=== PATIENT | female | born 1950 | race Caucasian/White ===

== ENCOUNTER 2019-08-31 11:44 | Emergency (ER) | payer OTHER ==
[~2019-08-31] VITALS: Ht 160 cm; Wt 70.3 kg
--- NOTE | ~2019-08-31 | EKG ---
[facility] [place] [address] ELECTROCARDIOGRAM REPORT Name: MELINDAESTELLA Edwards Room #: [facility]#: [id number] Admission: Attend Phys: Discharge: Date of : 54 Report #: [id number] THIS REPORT FOR: cc: Delvin Hargrove MD ~ THIS REPORT FOR: //name// [facility] ED Test Date: 2019-08-31 Test Time: 12:25:55 Pat Name: ESTELLA LAWRENCE Department: Room: Gender: F Charge Manager: SALONI : 1950 Requested By: Keisha Covington Order Number: [id number] MD: Measurements Intervals [place] Rate: 90 P: 12 VA: 133 QRS: -13 QRSD: 104 T: -1 QT: 397 QTc: 486 Interpretive Statements Sinus rhythm RSR' in V1 or V2, right VCD or RVH Borderline T abnormalities, inferior leads Borderline prolonged QT interval Baseline wander in lead(s) V1,V2,V6 Compared to ECG 11/14/2009 15:29:15 Right ventricular hypertrophy now present RSR' in V1 or V2 now present T-wave abnormality now present Left ventricular hypertrophy no longer present [email or web address] By: D: [id number] Epiphany Epiphany, /VISHAL
[~2019-08-31 11:44] MED LIST: ASACOL HD800 MG PO; COMPOUNDED HORMONES; LEVOTHROID; PROTONIX40 MG PO
[2019-08-31 12:10] LABS: URINE BILIRUBIN NEGATIVE (Negative); URINE BLOOD NEGATIVE (Negative); URINE CLARITY CLEAR; URINE COLOR YELLOW; URINE GLUCOSE-RANDOM* NEGATIVE (Negative); URINE KETONES 2+ (Negative); URINE LEUKOCYTES-REFLEX NEGATIVE (Negative); URINE NITRITE-REFLEX NEGATIVE (Negative); URINE PROTEIN (DIPSTICK) NEGATIVE (Negative); URINE UROBILINOGEN 0.2 E.U./dl (0.2-1.0)
[2019-08-31 12:29] LABS: ABSOLUTE NEUTROPHILS 12.8 thou/uL (1.4-8.2); BASOPHILS 0.4 % (0.0-2.0); HEMATOCRIT 40.7 % (37.0-47.0); HEMOGLOBIN 13.3 gm/dL (12.0-15.0); LYMPHOCYTES 7.9 % (24.0-44.0); MCH 29.9 pg (26.0-34.0); MCHC 32.6 g/dL (28.0-37.0); MCV 91.7 fL (80.0-100.0); MONOCYTES 2.8 % (1.0-8.0); PLATELET COUNT 312 thou/uL (150-400); POLYS 88.9 % (36.0-66.0); RBC 4.44 mil/uL (4.20-5.00); RDW 12.7 % (10.5-14.5); WBC 14.4 thou/uL (4.0-11.0)
[2019-08-31 12:31] LABS: SSA (PROTEIN CONFIRMATORY) TRACE (APPROX. 5) mg/dL (Negative)
[2019-08-31 12:35] LABS: ANION GAP 10 mmol/L (7-16); BUN 13 mg/dL (7-18); CALCIUM 8.9 mg/dL (8.5-10.1); CHLORIDE 104 mmol/L (98-107); CO2 26 mmol/L (21-32); CREATININE 0.9 mg/dL (0.6-1.0); GLUCOSE 110 mg/dL (74-106); POTASSIUM 3.9 mmol/L (3.5-5.1); SODIUM 140 mmol/L (136-145)
[2019-08-31 12:42] LABS: ALBUMIN 3.9 g/dL (3.4-5.0); DIRECT BILIRUBIN < 0.1 mg/dL (<0.1-0.2); SGOT 20 U/L (15-37); SGPT 30 U/L (30-65); TOTAL BILIRUBIN 0.4 mg/dL (<0.1-1.0); TOTAL PROTEIN 7.7 g/dL (6.4-8.2)
[2019-08-31 14:34] VITALS: BP 114/59
== END 2019-08-31 14:43 | disposition home or self-care (01) ==
LOC: ER 11:44
PROVIDERS: Emergency Medicine
DX: K52.9 Noninfective gastroenteritis and colitis, unspecified (principal); R11.2 Nausea with vomiting, unspecified; Z90.49 Acquired absence of other specified parts of digestive tract; Z98.51 Tubal ligation status; Z88.0 Allergy status to penicillin